=== PATIENT | male | born 1995 | race Two or more races ===

== ENCOUNTER 2017-04-14 17:30 | Emergency (ER) | payer SELFPAY ==
[~2017-04-14] VITALS: Ht 188 cm; Wt 163.3 kg
--- NOTE | 2017-04-14 17:49 | PHYS DOC ---
Past Medical History Past Medical History: No Pertinent History Past Surgical History: No Surgical History Alcohol Use: None Drug Use: None Adult General Chief Complaint Chief Complaint: DIZZY/LIGHT HEADED HPI HPI 22-year-old male presenting to the emergency department today with generalized dizziness and intermittent shortness of breath. He reports working really hard in the heat all day and is concerned he may have had heat exhaustion. Onset today. Location generalized. Duration intermittent. Patient denies syncope. Review of systems is negative for confusion seizure or syncope cyanosis lethargy chest pain abdominal pain. The patient denies pain anywhere. He currently reports being asymptomatic. All other review of systems is negative unless otherwise noted in history of present illness. ED course: 22-year-old male presenting to the emergency department after working very hard in the heat without much water feeling fatigued. Triage vital signs show the patient to be tachycardic likely secondary to dehydration. Otherwise the patient is not hyperthermic. On examination the patient is well- appearing not in any distress and otherwise has a normal physical exam. EKG obtained which was unremarkable other than tachycardia which is likely secondary to dehydration. The patient is able to drink water and was able to tolerate oral intake in the emergency department without any difficulty. I recommended the patient rehydrated home in a calm cool environment for treatment of dehydration and possible heat exhaustion. Review of Systems Review of Systems SEE ABOVE. Allergies Allergies Allergies Coded Allergies Type Severity Reaction Last Updated Verified No Known Drug Allergies 04/14/17 No Physical Exam Physical Exam SEE ABOVE Constitutional: Well developed, well nourished, no acute distress, non-toxic appearance. [] HENT: Normocephalic, atraumatic, bilateral external ears normal, oropharynx moist, no oral exudates, nose normal. [] Eyes: PERRLA, EOMI, conjunctiva normal, no discharge. [] Neck: Normal range of motion, no tenderness, supple, no stridor. [] Cardiovascular:tachy heart rate w/ regular rhythm, no murmur [] Lungs & Thorax: Bilateral breath sounds clear to auscultation [] Abdomen: Bowel sounds normal, soft, no tenderness, no masses, no pulsatile masses. [] Skin: Warm, dry, no erythema, no rash. [] Back: No tenderness, no CVA tenderness. [] Extremities: No tenderness, no cyanosis, no clubbing, ROM intact, no edema. [] Neurologic: Alert and oriented X 3, normal motor function, normal sensory function, no focal deficits noted. [] Psychologic: Affect normal, judgement normal, mood normal. [] Current Patient Data Vital Signs Vital Signs Date Time Temp Pulse Resp B/P (MAP) Pulse Ox O2 Delivery O2 Flow Rate FiO2 04/14/17 18:08 94 166/90 (115) 97 Room Air 04/14/17 17:40 98.5 18 98.5 EKG EKG [] Radiology/Procedures Radiology/Procedures [] Course & Med Decision Making Course & Med Decision Making Pertinent Labs and Imaging studies reviewed. (See chart for details) [] Dragon Disclaimer Dragon Disclaimer This electronic medical record was generated, in whole or in part, using a voice recognition dictation system. Departure Departure Impression: Primary Impression: Dehydration Additional Impression: Tachycardia Disposition: 01 HOME, SELF-CARE Condition: STABLE Referrals: NO PCP (PCP) MARY TORRES MD Patient Instructions: Dehydration, Adult Additional Instructions: Thank you for allowing us to participate in your care today. Followup with your primary care physician in 3 days if your symptoms do not improve. Call your Primary Doctor tomorrow and inform them of your visit today. If you do not have a primary care provider you can ask for a list of our primary care providers. Return to the emergency department you have any new or concerning findings. This should be evaluated by the primary care physician and any necessary consulting services for continued management within a few days after discharge. Return to emergency room if you have any new or concerning symptoms including but not limited to fever, chills, nausea, vomiting, intractable pain, any new rashes, chest pain, shortness of air, uncontrolled bleeding, difficulty breathing, and/or vision loss. Problem Qualifiers HEMANTH PEARSON MD Apr 14, 2017 17:49
[2017-04-14 18:08] VITALS: BP 166/90
--- NOTE | 2017-04-15 08:43 | EKG ---
[facility] [address] [place] [address] Test Date: 2017-04-14 Test Time: 17:39:19 Pat Name: MORALES ELLIS Department: Room: Gender: M Cable Operator: : 1995 Requested By: HEMANTH PEARSON Order Number: [id number] Reading MD: Jasper Ferrari Measurements Intervals [place] Rate: 108 P: 31 [place]: 178 QRS: 38 QRSD: 98 T: 125 QT: 308 QTc: 416 Interpretive Statements SINUS TACHYCARDIA LEFT ATRIAL ABNORMALITY INCOMPLETE RIGHT BUNDLE BRANCH BLOCK LVH WITH REPOLARIZATION ABNORMALITY QRS(T) CONTOUR ABNORMALITY CONSIDER ANTEROLATERAL MYOCARDIAL DAMAGE RI6.01 Unconfirmed report No previous ECG available for comparison Electronically Signed On 04-15-2017 11:20:52 CDT by Jasper Ferrari
== END 2017-04-14 18:25 | disposition home or self-care (01) ==
LOC: ER 17:30
DX: E86.0 Dehydration (principal); R00.0 Tachycardia, unspecified
CPT/HCPCS: 93005; 99283-25

== ENCOUNTER 2017-12-04 21:01 | Emergency (ER) | payer OTHER ==
[2017-12-04] MEDS: IPRATRPIUM/ALBUTEROL 0.5/2.5MG 3 ML NEBU. NEB (21:33)
[2017-12-04] MEDS: predniSONE 10 MG TABLET PO (21:36)
== END 2017-12-04 21:49 | disposition home or self-care (01) ==
LOC: ER 21:01
DX: J20.9 Acute bronchitis, unspecified (principal); J45.909 Unspecified asthma, uncomplicated
CPT/HCPCS: 94640; 99283-25; J7512; J7620

== ENCOUNTER 2018-08-10 03:48 | Emergency (ER) | payer OTHER ==
[~2018-08-10] VITALS: Ht 188 cm; Wt 163.3 kg
[~2018-08-10 03:48] MED LIST: AZIT250T6 PO; BENZ100C PO; PRED50TA PO
[2018-08-10] MEDS ORDERED: MORPHINE SULFATE 4 MG/ML VIAL. IV ONE (04:30)
[2018-08-10] MEDS ORDERED: IV NORMAL SALINE 1000ML BAG 1,000 ML IV ONE ×2 (04:30)
[2018-08-10] MEDS ORDERED: ONDANSETRON PF 4 MG/2 ML VIAL. IV ONE (04:30)
[2018-08-10 04:45] LABS: GFR 94.3; POTASSIUM 3.8 mmol/L (3.5-5.1)
--- NOTE | 2018-08-10 05:54 | PHYS DOC ---
Past Medical History Past Medical History: Gallstones, Hypertension Past Surgical History: No Surgical History Alcohol Use: Occasionally Drug Use: None Adult General Chief Complaint Chief Complaint: NAUSEA/VOMITING/DIARRHA HPI HPI Patient is a 23 year old male who presents with vomiting and diarrhea. Patient has had diarrhea over the last 2-3 days. He describes watery diarrhea. He did drink some Pepto-Bismol and subsequently had some lack colored stools as well. Overnight, he began to feel nauseated and had one episode of emesis so he decided to come to the emergency department. He does not complain of significant abdominal pain. History of friend is at the bedside and she had also been ill with similar symptoms although her symptoms improved. No fevers. No chills. No prior history of similar symptoms. No history of abdominal surgeries. Review of Systems Review of Systems Constitutional: Denies fever Eyes: Denies change HENT: Denies nasal congestion Respiratory: Denies cough or shortness of breath Cardiovascular: No additional information not addressed in HPI GI: as documented above : Denies Musculoskeletal: Denies back pain Integument: Denies rash Neurologic: Denies headache Endocrine: Denies polyuria All other systems were reviewed and found to be within normal limits, except as documented in this note. Current Medications Current Medications Current Medications Medications (Trade) Dose Ordered Sig/Jolene Start Time Stop Time Status Last Admin Dose Admin Dicyclomine HCl (Bentyl) 20 mg 1X ONCE 08/10/18 07:00 08/10/18 07:01 DC 08/10/18 07:28 20 MG Info (CONTRAST GIVEN -- Rx MONITORING) 1 each PRN DAILY PRN 08/10/18 07:00 08/12/18 06:59 Iohexol (Omnipaque 300 Mg/ml) 75 ml 1X ONCE 08/10/18 07:30 08/10/18 07:31 DC Loperamide HCl (Imodium) 2 mg 1X ONCE 08/10/18 06:00 08/10/18 06:01 DC 08/10/18 07:29 2 MG Morphine Sulfate (Morphine Sulfate) 4 mg 1X ONCE 08/10/18 04:30 08/10/18 04:31 DC 08/10/18 04:24 4 MG Ondansetron HCl (Zofran) 4 mg 1X ONCE 08/10/18 04:30 11/27/18 04:31 DC 08/10/18 04:23 4 MG Prochlorperazine Edisylate (Compazine) 10 mg 1X ONCE 08/10/18 06:15 08/10/18 06:16 DC 08/10/18 05:56 10 MG Sodium Chloride 1,000 ml @ 1,000 mls/hr 1X ONCE 08/10/18 04:30 08/10/18 05:29 DC 08/10/18 05:39 1,000 MLS/HR Allergies Allergies Allergies Coded Allergies Type Severity Reaction Last Updated Verified No Known Drug Allergies 04/14/17 No Physical Exam Physical Exam Constitutional: Well developed, well nourished, no acute distress HENT: Normocephalic, atraumatic, bilateral external ears normal, oropharynx moist Eyes: PERRLA, EOMI, conjunctiva normal Neck: Normal range of motion, no tenderness Cardiovascular:Heart rate regular rhythm, no murmur Lungs & Thorax: Bilateral breath sounds clear to auscultation Abdomen: Bowel sounds normal, soft, no tenderness Skin: Warm, dry, no erythema, no rash Back: No tenderness Extremities: No tenderness Neurologic: Alert and oriented X 3 Psychologic: Affect normal Current Patient Data Vital Signs Vital Signs Date Time Temp Pulse Resp B/P (MAP) Pulse Ox O2 Delivery O2 Flow Rate FiO2 08/10/18 07:30 92 18 151/71 (97) 98 Room Air 08/10/18 03:50 98.3 98.3 Lab Values Laboratory Tests Test 08/10/18 04:11 08/10/18 05:03 White Blood Count 13.7 x10^3/uL (4.0-11.0) H Red Blood Count 5.41 x10^6/uL (4.30-5.70) Hemoglobin 15.6 g/dL (13.0-17.5) Hematocrit 45.4 % (39.0-53.0) Mean Corpuscular Volume 84 fL (79-100) Mean Corpuscular Hemoglobin 29 pg (25-35) Mean Corpuscular Hemoglobin Concent 34 g/dL (31-37) Red Cell Distribution Width 13.3 % (11.5-14.5) Platelet Count 293 x10^3/uL (140-400) Neutrophils (%) (Auto) 77 % (31-73) H Lymphocytes (%) (Auto) 15 % (24-48) L Monocytes (%) (Auto) 6 % (0-9) Eosinophils (%) (Auto) 2 % (0-3) Basophils (%) (Auto) 0 % (0-3) Neutrophils # (Auto) 10.5 x10^3uL (1.8-7.7) H Lymphocytes # (Auto) 2.0 x10^3/uL (1.0-4.8) Monocytes # (Auto) 0.9 x10^3/uL (0.0-1.1) Eosinophils # (Auto) 0.3 x10^3/uL (0.0-0.7) Basophils # (Auto) 0.0 x10^3/uL (0.0-0.2) Sodium Level 138 mmol/L (136-145) Potassium Level 3.8 mmol/L (3.5-5.1) Chloride Level 104 mmol/L (98-107) Carbon Dioxide Level 23 mmol/L (21-32) Anion Gap 11 (6-14) Blood Urea Nitrogen 11 mg/dL (8-26) Creatinine 1.0 mg/dL (0.7-1.3) Estimated GFR (Cockcroft-Gault) 94.3 Glucose Level 130 mg/dL (70-99) H Calcium Level 9.0 mg/dL (8.5-10.1) Total Bilirubin 0.4 mg/dL (0.2-1.0) Direct Bilirubin 0.1 mg/dL (0.0-0.2) Aspartate Amino Transferase (AST) 25 U/L (15-37) Alanine Aminotransferase (ALT) 64 U/L (16-63) H Alkaline Phosphatase 140 U/L (46-116) H Total Protein 7.9 g/dL (6.4-8.2) Albumin 4.1 g/dL (3.4-5.0) Lipase 129 U/L (73-393) Urine Collection Type Void Urine Color Yellow Urine Clarity Clear Urine pH 5.5 Urine Specific [place] >=1.030 Urine Protein Negative mg/dL (NEG-TRACE) Urine Glucose (UA) Negative mg/dL (NEG) Urine Ketones (Stick) Negative mg/dL (NEG) Urine Blood Negative (NEG) Urine Nitrite Negative (NEG) Urine Bilirubin Negative (NEG) Urine Urobilinogen Dipstick 0.2 mg/dL (0.2 mg/dL) Urine Leukocyte Esterase Negative (NEG) Urine RBC 0 /HPF (0-2) Urine WBC 0 /HPF (0-4) Urine Squamous Epithelial Cells Occ /LPF Urine Bacteria 0 /HPF (0-FEW) Urine Mucus Mod /LPF Laboratory Tests 08/10/18 04:11 Laboratory Tests 08/10/18 04:11 EKG EKG [] Radiology/Procedures Radiology/Procedures [PROCEDURE: CT ABD PELV W/ IV CONTRST ONLY CT of the abdomen and pelvis with contrast, 08/10/2018: HISTORY: Abdominal pain, nausea and vomiting Multidetector CT imaging was performed following an IV bolus injection of iodinated contrast material. No oral contrast material was administered for this study. The liver is enlarged and of lower than normal density in a diffuse pattern compatible with fatty change. No hepatic mass is evident. The gallbladder is unremarkable. No pancreatic abnormality is seen. The spleen shows no abnormality. The kidneys and adrenal glands are unremarkable. No periaortic or pelvic adenopathy is seen. There are small scattered mesenteric lymph nodes without definite pathologic enlargement. The bowel loops are not dilated. The appendix shows no abnormality. No free air or free fluid is evident in the abdomen or pelvis. IMPRESSION: 1. Hepatomegaly with hepatic steatosis. 2. No acute abdominal or pelvic abnormality is detected.] Course & Med Decision Making Course & Med Decision Making Pertinent Labs and Imaging studies reviewed. (See chart for details) Patient is evaluated immediately on arrival to his room. His abdominal exam is benign. He does complain of nausea. He is mildly hypertensive but is not tachycardic. Overall he is well appearing. Will give medications for symptom control and check BMP. IV fluids are also ordered. 05:50: Patient is evaluated again. He continues to feel nauseated. He sits up in bed and has 2 episodes of emesis. Nonbloody. Compazine is ordered. IV fluids are continued. BMP is reviewed and no acute findings. 06:20: Patient now c/o worsening abdominal pain. CT, LFT, CBC, UA, Lipase ordered. CHIN to Dr. Ivan. 7:50 AM: Patient care was assumed at 6 AM shift change. He presents complaining of vomiting and diarrhea, and some generalized abdominal pain. He has been reexamined, he has some mild generalized diffuse abdominal discomfort without focal tenderness. The right upper quadrant itself is relatively nontender. His labs been reviewed, he has mild elevation of his LFTs. His CT scan report has been reviewed as well. I discussed test results with the patient, including close outpatient follow-up with a primary care provider for further monitoring and evaluation of his mildly elevated liver function tests. The exact etiology of this is unknown at this time, although I'm doubtful that this is related to the patient's acute illness, more likely might be related to chronic hepatic steatosis/metabolic syndrome. Regardless, further outpatient evaluation to rule out an acute viral hepatitis, although not highly suspected, was discussed with the patient. Return precautions were discussed in detail. Dragon Disclaimer Dragon Disclaimer This electronic medical record was generated, in whole or in part, using a voice recognition dictation system. Departure Departure Impression: Primary Impression: Nausea vomiting and diarrhea Additional Impressions: Abdominal pain Elevated liver function tests Disposition: HOME, SELF-CARE Condition: STABLE Referrals: NO PCP (PCP) Patient Instructions: Abdominal Pain, Viral Gastroenteritis Additional Instructions: Please use the list of primary care providers provided to help establish care with a local primary care provider. Your liver function tests were noted to be mildly elevated today. Please contact the primary care provider to arrange further outpatient monitoring and evaluation for these abnormal test results. Return to medical care for any new, or worsening symptoms, development of fevers , recurrent vomiting, worsening pain, or any other new or concerning symptoms. Scripts Dicyclomine Hcl (DICYCLOMINE HCL) 20 Mg Tablet 1 TAB PO QID, #20 TAB Prov: JUAQUIN IVAN MD 08/10/18 Ondansetron Hcl (ZOFRAN) 4 Mg Tablet 1 TAB PO Q6HRS PRN for NAUSEA/VOMITING, #20 TAB Prov: JUAQUIN IVAN MD 08/10/18 Problem Qualifiers SUNSHINE KING DO Aug 10, 2018 05:54 JUAQUIN IVAN MD Aug 10, 2018 07:58
[2018-08-10] MEDS ORDERED: LOPERAMIDE 2 MG CAPSULE PO ONE (06:00)
[2018-08-10] MEDS ORDERED: PROCHLORPERAZINE 10 MG/2 ML VIAL. IV ONE (06:15)
[2018-08-10 06:42] LABS: BILIRUBIN,URINE NEGATIVE (NEG); CLARITY,URINE CLEAR; COLOR,URINE YELLOW; NITRITE,URINE NEGATIVE (NEG); PH,URINE 5.5; PROTEIN,URINE NEGATIVE (NEG-TRACE); UROBILINOGEN,URINE 0.2 mg/dL (0.2 mg/dL)
[2018-08-10 06:45] LABS: ALBUMIN 4.1 g/dL (3.4-5.0); DIRECT BILIRUBIN 0.1 mg/dL (0.0-0.2); TOTAL BILIRUBIN 0.4 mg/dL (0.2-1.0); TOTAL PROTEIN 7.9 g/dL (6.4-8.2)
[2018-08-10 06:46] LABS: BASO % 0 % (0-3); EOS # 0.3 x10^3/uL (0.0-0.7); EOS % 2 % (0-3); HEMATOCRIT 45.4 % (39.0-53.0); HEMOGLOBIN 15.6 g/dL (13.0-17.5); LYMPH % 15 % (24-48); MEAN CORPUSCULAR HEMOGLOBIN 29 pg (25-35); MEAN CORPUSCULAR HGB CONC 34 g/dL (31-37); MEAN CORPUSCULAR VOLUME 84 fL (79-100); MONO # 0.9 x10^3/uL (0.0-1.1); MONO % 6 % (0-9); NEUT # 10.5 x10^3uL (1.8-7.7); NEUT % 77 % (31-73); PLATELET COUNT 293 x10^3/uL (140-400); RED BLOOD COUNT 5.41 x10^6/uL (4.30-5.70); RED CELL DISTRIBUTION WIDTH 13.3 % (11.5-14.5); WHITE BLOOD COUNT 13.7 x10^3/uL (4.0-11.0)
[2018-08-10] MEDS ORDERED: DICYCLOMINE HCL 10 MG CAPSULE PO ONE (07:00)
[2018-08-10] MEDS ORDERED: CONTRAST GIVEN. MC PRN (07:00)
[2018-08-10 07:03] LABS: SQUAMOUS EPITHELIAL CELL,UR OCC /LPF
[2018-08-10 07:04] LABS: BACTERIA,URINE 0 /HPF (0-FEW); RBC,URINE 0 /HPF (0-2); WBC,URINE 0 /HPF (0-4)
[2018-08-10 07:30] VITALS: BP 151/71
[2018-08-10] MEDS ORDERED: IOHEXOL 300 MG/ML 100ML VIAL. IV ONE (07:30)
--- NOTE | 2018-08-10 07:45 | RAD ---
CT of the abdomen and pelvis with contrast, 08/10/2018: HISTORY: Abdominal pain, nausea and vomiting Multidetector CT imaging was performed following an IV bolus injection of iodinated contrast material. No oral contrast material was administered for this study. The liver is enlarged and of lower than normal density in a diffuse pattern compatible with fatty change. No hepatic mass is evident. The gallbladder is unremarkable. No pancreatic abnormality is seen. The spleen shows no abnormality. The kidneys and adrenal glands are unremarkable. No periaortic or pelvic adenopathy is seen. There are small scattered mesenteric lymph nodes without definite pathologic enlargement. The bowel loops are not dilated. The appendix shows no abnormality. No free air or free fluid is evident in the abdomen or pelvis. IMPRESSION: 1. Hepatomegaly with hepatic steatosis. 2. No acute abdominal or pelvic abnormality is detected. PQRS Compliance Statement: One or more of the following individualized dose reduction techniques were utilized for this examination: 1. Automated exposure control 2. Adjustment of the mA and/or kV according to patient size 3. Use of iterative reconstruction technique Electronically signed by: Brandon Benson MD (08/10/2018 7:41 AM) [facility]
[2018-08-10] MEDS ORDERED: ONDA4TAB7 PO (07:58)
[2018-08-10] MEDS ORDERED: DICY20TA3 PO (07:58)
== END 2018-08-10 08:16 | disposition home or self-care (01) ==
LOC: ER 03:48
DX: R11.2 Nausea with vomiting, unspecified (principal); R19.7 Diarrhea, unspecified; R10.84 Generalized abdominal pain; R79.89 Other specified abnormal findings of blood chemistry; I10 Essential (primary) hypertension; K76.0 Fatty (change of) liver, not elsewhere classified
CPT/HCPCS: 36415; 74177; 80048; 80076; 81001; 83690; 85025; 96361; 96374; 96375; 99284; J0780; J2270; J2405; J7030